=== PATIENT | female | born 1955 | race Caucasian/White ===

== ENCOUNTER 2016-06-18 10:25 | Day surgery (SDC) | payer BC ==
[2016-06-18] VITALS (10 sets, daily range): BP systolic 110–153; BP diastolic 70–91
[~2016-06-18] VITALS: Ht 160 cm; Wt 90.0 kg
[~2016-06-18 10:25] MED LIST: LACTATED RINGERS 1,000 ML IV SCH; ceFAZolin 2,000 MG in SODIUM CHLORIDE VIAL (PF) 20 ML IV ONE
[2016-06-18] MEDS ORDERED: POVIDONE IODINE 10% OINTMENT (BETADINE) 30 GM TUBE TOP ONE (10:45)
[2016-06-18] MEDS ORDERED: DEXAMETHASONE 4 MG/ML (DECADRON) VIAL ONE ×2 (10:45→16:57)
[2016-06-18] MEDS: SODIUM CHLORIDE FLUSH 3 ML SYR IV PRN ×2 (10:57→17:44)
[2016-06-18 10:59] LABS: BILIRUBIN,URINE Negative (Negative); CLARITY,URINE Clear; COLOR,URINE Yellow; GLUCOSE, URINE (UA) Negative (Negative); LEUKOCYTE ESTERASE ,URINE Trace (Negative); UROBILINOGEN,URINE 0.2 mg/dL (0.2-1.0)
[2016-06-18 11:08] LABS: URINE CENTRIFUGED VOLUME 12 mL
[2016-06-18 11:09] LABS: RBC,URINE 0-2 /HPF
[2016-06-18 11:13] LABS: MEAN CORPUSCULAR HGB CONC 33.9 g/dL (31.0-37.0); MEAN PLATELET VOLUME 9.2 FL (6.0-9.5); WHITE BLOOD COUNT 6.53 10^3uL (4.0-11.0)
[2016-06-18] MEDS ORDERED: BUPIVACAINE 0.5% ONE (14:08)
[2016-06-18] MEDS ORDERED: LIDOCAINE 2% (XYLOCAINE) 20 ML VIAL INJ ONE (14:08)
[2016-06-18] MEDS ORDERED: MIDAZOLAM 2 MG/2 ML (VERSED) VIAL ONE (14:55)
[2016-06-18] MEDS ORDERED: ALFENTANIL 500 MCG/ML (ALFENTA) 5 ML AMP IV ONE (14:55)
[2016-06-18] MEDS ORDERED: ALFENTANIL 1,000 MCG/2 ML AMP IV ONE (14:55)
[2016-06-18] MEDS ORDERED: PROPOFOL 80 ML IV ONE (16:05)
--- NOTE | 2016-06-18 16:31 | NUR ---
REPORT GIVEN TO ÁNGEL HAMM ON MED/SURG.
[2016-06-18] MEDS ORDERED: ONDANSETRON 2 MG/ML (Z0FRAN) 2 ML VIAL ONE (16:58)
--- NOTE | 2016-06-18 17:15 | NUR ---
Pt. arrived to 301 from OR/recovery at this time. Pt. assisted up to chair. [place], chips and a cookie provided. Water and coffee given per pt. request. R foot dressing is CDI, elevated in recliner with 2 pillows. Ice pack to anterior ankle. Pt. denies needs at this time.
--- NOTE | 2016-06-18 17:36 | NUR ---
Pt. became nauseous, had 100ml emesis. Will give Zofran per written orders, see EMAR.
[2016-06-18] MEDS ORDERED: ONDANSETRON 2 MG/ML (Z0FRAN) 2 ML VIAL IV PRN (17:40)
--- NOTE | 2016-06-18 18:02 | NUR ---
Pt. has voided a second time. Encouraged pt. to slow down on drinking, as she has already had 480ml water. Addendum: 06/18/16 at 1802 by Keke Kelley RN Amended: Links added.
--- NOTE | 2016-06-18 18:27 | NUR ---
Pt. vomiting a third time, states she is still nauseous.
[2016-06-18] MEDS ORDERED: PROMETHAZINE 25 MG/ML (PHENERGAN) 1 ML VIAL IM ONE (18:30)
--- NOTE | 2016-06-18 18:30 | NUR ---
Gertrude RODRIGUEZ on unit, she has seen pt. to clear her for surgery. Notified of continued n/v. Order received for Phenergan 12.5mg IV x1.
[2016-06-18] MEDS ORDERED: SODIUM CHLORIDE 25 ML IV ONE (18:36)
[2016-06-18] MEDS ORDERED: PROMETHAZINE HCL INJ 12.5 MG in SODIUM CHLORIDE 25 ML IV ONE (18:40)
[2016-06-18] MEDS ORDERED: PROMETHAZINE HCL INJ 12.5 MG in SODIUM CHLORIDE 25 ML IV PRN (19:25)
--- NOTE | 2016-06-18 20:00 | NUR ---
Gertrude Whitney writing orders for patient to stay for evening. Dr. Kaufman here to see patient, states for patient to hold off on taking pain medications throughout night while she is nauseated, and if she feels like she needs it then she is to take from her own medications. Will continue to monitor.
--- NOTE | 2016-06-18 22:00 | NUR ---
Patient states that she has taken one pain pill from her home pain medications.
[2016-06-19 00:08] VITALS: BP 149/81
--- NOTE | 2016-06-19 06:32 | NUR ---
Patient states that she's feeling well this AM and is getting ready to call for her ride to go home. No needs at this time.
--- NOTE | 2016-06-19 07:18 | NUR ---
Patient's discharge instructions given, patient without questions or needs. IV DC'd without redness or swelling. No needs at this time. Patient awaiting ride getting here. No needs at this time.
--- NOTE | 2016-06-19 07:38 | NUR ---
Pt dismissed at this time via w/c accompanied by this nurse and daughter to private vehicle. Skin warm, dry, intact. Resprs nonlabored, even on RA. Drsg to R foot and brace intact.
== END 2016-06-19 07:39 | disposition home or self-care (01) ==
LOC: ASC 10:25 → MED/SURG 17:28 → ASC 06-19 07:39
PROVIDERS: ATTEND Podiatrist
DX: M20.11 Hallux valgus (acquired), right foot (principal); M21.611 Bunion of right foot; M92.71 Juvenile osteochondrosis of metatarsus, right foot; R11.2 Nausea with vomiting, unspecified; M54.32 Sciatica, left side; G43.909 Migraine, unspecified, not intractable, without status migrainosus; J30.2 Other seasonal allergic rhinitis
CPT/HCPCS: 28112; 28299; 36415; 81003; 81015; 85027; 87088; 87147; C1713; J1100; J2001; J2250; J2405; J2550; J3490; J7030; J7120